=== PATIENT | female | born 1950 | race Caucasian/White ===

== ENCOUNTER → 2016-10-24 | Outpatient (CLI) | payer OTHER, BC | LOC: BMCIMAGING 14:55 | PROVIDERS: ATTEND Internal Medicine | DX: N25.9 Disorder resulting from impaired renal tubular function, unspecified (principal); N83.201 Unspecified ovarian cyst, right side ==

== ENCOUNTER → 2017-03-25 | Outpatient (CLI) | payer OTHER, BC | LOC: BMCIMAGING 14:43 | PROVIDERS: ATTEND Internal Medicine | DX: Z12.31 Encounter for screening mammogram for malignant neoplasm of breast (principal) | CPT/HCPCS: G0202 ==

== ENCOUNTER → 2017-04-09 | Outpatient (CLI) | payer OTHER, BC | LOC: BMCIMAGING 14:37 | PROVIDERS: ATTEND Internal Medicine | DX: Z13.820 Encounter for screening for osteoporosis (principal); M85.80 Other specified disorders of bone density and structure, unspecified site ==

== ENCOUNTER → 2017-07-16 | Outpatient (CLI) | payer OTHER, BC | LOC: BMCIMAGING 18:02 → MERGE 18:02 | PROVIDERS: ATTEND Emergency Medicine | DX: R91.8 Other nonspecific abnormal finding of lung field (principal); R05 Cough ==

== ENCOUNTER → 2017-08-05 | Outpatient (CLI) | payer OTHER, BC | LOC: BMCIMAGING 08:14 | PROVIDERS: ATTEND Internal Medicine | DX: J18.9 Pneumonia, unspecified organism (principal) ==

== ENCOUNTER → 2017-09-03 | Outpatient (CLI) | payer OTHER | LOC: FIMAGING 14:00 | PROVIDERS: ATTEND Internal Medicine | DX: J40 Bronchitis, not specified as acute or chronic (principal); I77.819 Aortic ectasia, unspecified site ==

== ENCOUNTER 2018-03-03 17:42 | Emergency (ER) | payer OTHER, BC ==
--- NOTE | 2018-03-03 17:50 | EDPHY ---
H & P Time Seen by Provider: 03/03/18 17:50 HPI/ROS: CHIEF COMPLAINT: Syncope, facial injury HISTORY OF PRESENT ILLNESS: The patient presents to the ED after syncopal episode. She reportedly was lying flat on the couch when her granddaughter called for her. She stood up and passed out. The patient did strike her face and nose. She sustained a small abrasion from her glasses. The patient complains only of a mild headache. She denies any antecedent chest pain, palpitations or shortness of breath. She denies any history of melena or hematemesis. She denies any history of pulmonary or cardiac disease. The patient states that she currently is feeling better. She denies any acute numbness or weakness. There is no history of seizure observed at the scene. REVIEW OF SYSTEMS: A comprehensive 10 point review of systems is otherwise negative aside from elements mentioned in the history of present illness. Source: Patient Exam Limitations: No limitations - Social History Smoking Status: Never smoked - Physical Exam Exam: General Appearance: Alert, no distress Head: Obvious nasal fracture, superficial abrasions and ecchymosis noted to nasal bridge. No suturable laceration Eyes: Pupils equal, round, reactive ENT, Mouth: No hemotympanum, no oral trauma Neck: Minimal posterior cervical tenderness Respiratory: No chest wall tender, no subcutaneous air, lungs clear bilaterally Cardiovascular: Regular rate and rhythm Abdomen: Abdomen is soft and nontender, pelvis stable Skin: No lacerations, No abrasion Back: No midline T/L/S pain Extremities: Nontender, full range of motion Neurological: A&Ox3, normal motor function, normal sensory exam Constitutional: Initial Vital Signs Temperature (C) 37.1 C 03/03/18 17:51 Heart Rate 71 03/03/18 17:51 Respiratory Rate 16 03/03/18 17:51 Blood Pressure 134/108 H 03/03/18 17:51 O2 Sat (%) 97 03/03/18 17:51 O2 Delivery Mode Room Air Allergies/Adverse Reactions: Latex, Natural Rubber Allergy (Verified 03/03/18 17:50) NSAIDS (Non-Steroidal Anti-Inflamma Allergy (Verified 03/03/18 17:50) Home Medications: Medication Instructions Recorded Folic Acid 03/03/18 Methotrexate 03/03/18 Vitamin D3 03/03/18 Zoloft 50mg (*) 03/03/18 Medical Decision Making - Diagnostics EKG Interpretation: EKG: Complete interpretation has been separately recorded in the Client Outlook archive. Summary impression: Sinus rhythm, rate 62 Imaging Results: Imaging Impressions Head CT 03/03/18 18:38 Impression: Normal noncontrast CT of the brain. Results called to Dr. Connor Vásquez at 7:20 PM at the time of the interpretation. ED Course/Re-evaluation: Patient was observed in the emergency department after syncopal episode. She continued to complain of a mild ongoing headache. Given her age a CT scan of the brain was ordered to evaluate for fracture or intracranial hemorrhage. Additionally the patient had some poorly localized upper cervical spine tenderness. CT scan of cervical spine was also ordered. Regarding her syncope. EKG demonstrated no evidence of arrhythmia. She has no evidence of a anemia or metabolic derangement. I believe that she likely experienced a vasovagal episode. Neurologically the patient is intact without evidence of a stroke. CT scan of the head demonstrates no evidence of a skull fracture, intracranial hemorrhage or obvious nasal bone fracture. CT scan of the cervical spine demonstrates no evidence of an acute fracture. The patient did receive IV fluid rehydration in the emergency department. She had no recurrent hypotension or syncope while here. At this point time I do believe the patient likely experienced a vasovagal episode. Differential Diagnosis: Differential diagnosis considered includes vasovagal episode, arrhythmia, anemia , dehydration, medication side effect, concussion, intracranial hemorrhage, facial fracture - Data Points Laboratory Results: Laboratory Results 03/03/18 18:06 03/03/18 18:06 03/03/18 03/03/18 18:06 18:06 WBC 7.57 10^3/uL 10^3/uL (3.80-9.50) RBC 4.76 10^6/uL 10^6/uL (4.18-5.33) Hgb 15.0 g/dL g/dL (12.6-16.3) Hct 44.3 % % (38.0-47.0) MCV 93.1 fL fL (81.5-99.8) MCH 31.5 pg pg (27.9-34.1) MCHC 33.9 g/dL g/dL (32.4-36.7) RDW 13.5 % % (11.5-15.2) Plt Count 215 10^3/uL 10^3/uL (150-400) MPV 11.0 fL fL (8.7-11.7) Neut % (Auto) 81.6 % H % (39.3-74.2) Lymph % (Auto) 10.7 % L % (15.0-45.0) [place] % (Auto) 6.5 % % (4.5-13.0) Eos % (Auto) 0.4 % L % (0.6-7.6) Baso % (Auto) 0.5 % % (0.3-1.7) Nucleat RBC Rel Count 0.0 % % (0.0-0.2) Absolute Neuts (auto) 6.18 10^3/uL 10^3/uL (1.70-6.50) Absolute Lymphs (auto) 0.81 10^3/uL L 10^3/uL (1.00-3.00) Absolute Monos (auto) 0.49 10^3/uL 10^3/uL (0.30-0.80) Absolute Eos (auto) 0.03 10^3/uL 10^3/uL (0.03-0.40) Absolute Basos (auto) 0.04 10^3/uL 10^3/uL (0.02-0.10) Absolute Nucleated RBC 0.00 10^3/uL 10^3/uL (0-0.01) Immature Gran % 0.3 % % (0.0-1.1) Immature Gran # 0.02 10^3/uL 10^3/uL (0.00-0.10) Sodium 140 mEq/L mEq/L (135-145) Potassium 3.9 mEq/L mEq/L (3.3-5.0) Chloride 102 mEq/L mEq/L (97-110) Carbon Dioxide 28 mEq/l mEq/l (22-31) Anion Gap 10 mEq/L mEq/L (8-16) BUN 24 mg/dL H mg/dL (7-23) Creatinine 0.9 mg/dL mg/dL (0.6-1.0) Estimated GFR > 60 Glucose 115 mg/dL H mg/dL (70-100) Calcium 9.8 mg/dL mg/dL (8.5-10.4) Medications Given: Discontinued Medications Sodium Chloride (Ns) 1,000 mls @ 0 mls/hr IV EDNOW ONE; Wide Open PRN Reason: Protocol Stop: 03/03/18 17:59 Last Admin: 03/03/18 18:18 Dose: 1,000 mls Departure - Departure Disposition: Home, Routine, Self-Care Clinical Impression: Syncope, Nasal contusion Condition: Good Instructions: Syncope (ED), Contusion in Adults (ED) Additional Instructions: 1. Please return to the ED for any recurrent passing out, severe headache, numbness, weakness or other concerns. 2. Tylenol and ibuprofen as needed for pain and swelling. 3. Apply ice pack to nasal bridge 20-30 minutes at a time 4 to 5 times a day for the next several days. 4. Please follow up with the Ear Nose Throat physician you have been referred to for evaluation of your nasal injury. 5. Your CT scan demonstrates no evidence of an obvious fracture or head injury. 6. Please try and increase your fluid intake as mild dehydration likely contributed to your symptoms today. Referrals: Anastacia Pool MD [Primary Care Provider] - As per Instructions Beatrice Lr MD [Medical Doctor] - As per Instructions
[2018-03-03] MEDS ORDERED: NS 1,000 ML IV ONE (17:58)
[2018-03-03 18:24] LABS: PLATELET COUNT 215 10^3/uL (150-400)
--- NOTE | 2018-03-03 18:28 | CPEKG ---
Test Reason : OPEN Blood Pressure : / mmHG Vent. Rate : 062 BPM Atrial Rate : 061 BPM P-R Int : 154 ms QRS Dur : 087 ms QT Int : 407 ms P-R-T Axes : 064 029 056 degrees QTc Int : 414 ms Sinus rhythm Confirmed by Dom Tolliver ([id number]) on 03/03/2018 6:28:16 PM Referred By: Confirmed By:Dom Tolliver
[2018-03-03 19:32] VITALS: BP 133/77
== END 2018-03-03 19:48 | disposition home or self-care (01) ==
DX: S00.33XA Contusion of nose, initial encounter (principal); S00.81XA Abrasion of other part of head, initial encounter; W18.39XA Other fall on same level, initial encounter; Y92.019 Unspecified place in single-family (private) house as the place of occurrence of the external cause; E86.9 Volume depletion, unspecified; M48.02 Spinal stenosis, cervical region

== ENCOUNTER → 2018-03-26 | Outpatient (CLI) | payer OTHER, BC | LOC: BMCIMAGING 07:38 | PROVIDERS: ATTEND Internal Medicine | DX: Z12.31 Encounter for screening mammogram for malignant neoplasm of breast (principal) ==